=== PATIENT | female | born 1990 | race Caucasian/White ===

== ENCOUNTER 2021-07-14 16:24 | Emergency (ER) | payer OTHER ==
[~2021-07-14] VITALS: Ht 180.3 cm; Wt 66.7 kg
[2021-07-14 16:35] VITALS: BP 128/43
--- NOTE | 2021-07-14 17:05 | NUR ---
ATTEMPTED TO BRING PT BACK TO BED, NO ANSWER
--- NOTE | 2021-07-14 17:20 | NUR ---
PT IS IN LOBBY RESTROOM, WAITING FOR HER TO COME OUT.
--- NOTE | 2021-07-14 17:34 | NUR ---
PT STILL IN ER LOBBY RESTROOM, SECURITY CALLED FOR SAFETY. URINE SAMPLE PROVIDED.
--- NOTE | 2021-07-14 17:47 | NUR ---
PT AMBULATED TO ER BED 1
--- NOTE | 2021-07-14 18:01 | NUR ---
30/F BIB SELF WITH C/O UPPER BACK PAIN, CHILLS AND LEG SWELLING X3 DAYS. STATES SHE HAS HAD 4 POSITIVE TESTS IN THE PAST WEEK. ALSO C/O PAINFUL URINATION AND PAINFUL INTERCOURSE. DENIES ANY VAGINAL DISCHARGE AT THIS TIME. DENIES CP, SOB, FEVER. PATIENT IS A4. MEDHX: HEP C ALLERGIES: MIDOL, IBUPROFEN
--- NOTE | 2021-07-14 18:33 | NUR ---
ERMD at bedside to examine pt
[2021-07-14] MEDS ORDERED: AZITHROMYCIN 250 MG TAB PO ONE (18:45)
[2021-07-14] MEDS ORDERED: cefTRIAXone 1,000 MG in LIDOCAINE MPF 1% 2.1 ML IM ONE (18:45)
[2021-07-14 19:05] LABS: BASOPHILS % (AUTO) 0.5 % (0.0-2.0); EOSINOPHILS # (AUTO) 0.2 K/uL (0-0.4); HEMATOCRIT 30.5 % (36-48); HEMOGLOBIN 10.5 g/dL (12.0-16.0); LYMPHOCYTES # (AUTO) 2.2 K/uL (2.5-16.5); LYMPHOCYTES % (AUTO) 36.6 % (20.5-51.1); MEAN CORPUSCULAR HEMOGLOBIN 28 pg (27-31); MEAN CORPUSCULAR HGB CONC 34 g/dL (33-37); MEAN CORPUSCULAR VOLUME 80.8 fL (80-94); MONOCYTES # (AUTO) 0.4 K/uL (0.8-1.0); MONOCYTES % (AUTO) 6.4 % (1.7-9.3); NEUTROPHILS # (AUTO) 3.2 K/uL (1.8-7.7); NEUTROPHILS % (AUTO) 53.5 % (42.2-75.2); PLATELET COUNT (AUTO) 318 K/uL (140-450); RED BLOOD CELL COUNT(AUTO) 3.78 MIL/uL (4.20-5.40); RED CELL DISTRIBUTION WIDTH 14.4 % (11.6-13.7); WHITE BLOOD COUNT (AUTO) 6.1 K/uL (4.8-10.8)
--- NOTE | 2021-07-14 19:15 | NUR ---
Pt report given to BRUNILDA Jaffe. Transfer of care at this time.
[2021-07-14 19:19] LABS: ALBUMIN 2.9 g/dL (3.4-5.0); ANION GAP 8.5 (8-16); CARBON DIOXIDE 32.7 mmol/L (21-32); CREATININE 0.6 mg/dL (0.6-1.3); POTASSIUM 4.2 mmol/L (3.5-5.1); TOTAL BILIRUBIN 0.1 mg/dL (0.0-1.0)
--- NOTE | 2021-07-14 19:20 | NUR ---
PELVIC EXAM SET UP COMPLETED
--- NOTE | 2021-07-14 19:21 | NUR ---
US AT BEDSIDE
[2021-07-14 19:33] LABS: BARBITURATE, URINE NEGATIVE ng/ml (NEG <=200); BENZODIAZEPINE, URINE NEGATIVE ng/mL (NEG <=200); CANNABINOID, URINE NEGATIVE ng/mL (NEG <=50); COCAINE, URINE NEGATIVE ng/mL (NEG <=300); OPIATE, URINE POSITIVE ng/mL (NEG <=2000); PHENCYCLIDINE SCREEN,URINE NEGATIVE ng/mL (NEG <=25)
[2021-07-14] MEDS ORDERED: cefTRIAXone 1,000 MG VIAL ONE (19:33)
[2021-07-14] MEDS ORDERED: LIDOCAINE MPF 1% 5 ML ONE (19:34)
--- NOTE | 2021-07-14 20:00 | NUR ---
Female [employer] Engineer accompanied female patient for Pelvic Exam.
[2021-07-14] MEDS ORDERED: NALO4SPR NS (21:05)
[2021-07-14] MEDS ORDERED: CEPH-588 PO (21:05)
--- NOTE | 2021-07-14 21:33 | NUR ---
Patient discharged with v/s stable. Written and verbal after care instructions given and explained. Patient alert, oriented and verbalized understanding of instructions. Ambulatory with steady gait. All questions addressed prior to discharge. ID band removed. Patient advised to follow up with PMD. Rx of KEFLEX AND NARCAN given. Patient educated on indication of medication including possible reaction and side effects. Opportunity to ask questions provided and answered.
[2021-07-14 21:36] VITALS: BP 98/48
[2021-07-14 22:36] LABS: APPEARANCE,URINE CLEAR (CLEAR); BILIRUBIN,URINE NEGATIVE (NEGATIVE); BLOOD, URINE 1+ (NEGATIVE); COLOR,URINE YELLOW (YELLOW); LEUKOCYTE ESTERASE ,URINE TRACE (NEGATIVE); NITRITE, URINE POSITIVE (NEGATIVE); UGLUCOSE NEGATIVE (NEGATIVE)
[2021-07-14 22:37] LABS: RBC,URINE 0-5 /HPF (0-5); WBC,URINE 0-5 /HPF (0-5)
== END 2021-07-14 21:33 | disposition home or self-care (01) ==
LOC: MED 16:24
DX: O23.41 Unspecified infection of urinary tract in pregnancy, first trimester (principal); O99.011 Anemia complicating pregnancy, first trimester; F15.90 Other stimulant use, unspecified, uncomplicated; F11.90 Opioid use, unspecified, uncomplicated; F17.290 Nicotine dependence, other tobacco product, uncomplicated; Z11.3 Encounter for screening for infections with a predominantly sexual mode of transmission; Z3A.13 13 weeks gestation of pregnancy
CPT/HCPCS: 36415; 76815; 80053; 80305; 81001; 81025; 83690; 84702; 85025; 87086; 87210; 87491; 96372; 99284; J0696; J2001; Q0092

== ENCOUNTER 2021-07-15 08:00 | Emergency (ER) | payer OTHER ==
[~2021-07-15 08:00] MED LIST: CEPH-588 PO; NALO4SPR NS
--- NOTE | 2021-07-15 08:13 | NUR ---
CALLED X1. NO SHOW.
--- NOTE | 2021-07-15 08:21 | NUR ---
CALLED X2. NO SHOW.
--- NOTE | 2021-07-15 08:22 | NUR ---
PATIENT LEFT WITHOUT BEING SEEN BY DR TAFOYA . NO FURTHER CARE PROVIDED FOR PATIENT.
== END 2021-07-15 08:22 | disposition left against medical advice (07) ==
LOC: MED 08:00
DX: Z53.21 Procedure and treatment not carried out due to patient leaving prior to being seen by health care provider (principal)